=== PATIENT | female | born 1945 | race Caucasian/White ===

== ENCOUNTER 2019-07-02 08:54 | Day surgery (SDC) | payer MEDICARE, BC ==
[2019-06-30 12:16] LABS: BASOPHILS # (AUTO) 0.1 X10'3 (0-0.2); BASOPHILS % (AUTO) 1.3 % (0-1); EOSINOPHILS # (AUTO) 0.3 X10'3 (0-0.9); EOSINOPHILS % (AUTO) 3.8 % (0-6); HEMATOCRIT 38.4 % (35.0-45.0); HEMOGLOBIN 12.8 g/dl (12.0-16.0); LYMPHOCYTES # (AUTO) 1.4 X10'3 (1.1-4.8); LYMPHOCYTES % (AUTO) 20.1 % (21-51); MEAN CORPUSCULAR HEMOGLOBIN 28.3 PG (27.0-31.0); MEAN CORPUSCULAR HGB CONC 33.4 g/dL (33.0-36.5); MEAN CORPUSCULAR VOLUME 84.7 FL (78-98); MEAN PLATELET VOLUME 10.2 FL (7.4-10.4); MONOCYTES # (AUTO) 0.5 X10'3 (0-0.9); MONOCYTES % (AUTO) 7.4 % (2-12); NEUTROPHILS # (AUTO) 4.6 X10'3 (1.8-7.7); NEUTROPHILS % (AUTO) 67.4 % (42-75); PLATELET COUNT 242 X10'3 (140-440); RED BLOOD COUNT 4.54 X10'6 (4.20-5.60); RED CELL DISTRIBUTION WIDTH 13.8 % (11.5-14.5); WHITE BLOOD COUNT 6.9 X10'3 (4.5-11.0)
[2019-06-30 12:18] LABS: ALANINE AMINOTRANSFERASE 23 U/L (12-78); ALBUMIN 3.8 G/DL (3.4-5.0); ALBUMIN/GLOBULIN RATIO 1.1 (1.1-1.5); ALKALINE PHOSPHATASE 116 IU/L (46-116); ANION GAP 6 (8-16); ASPARTATE AMINO TRANSFERASE 22 U/L (10-37); BILIRUBIN,TOTAL 0.8 MG/DL (0.1-1.0); BLOOD UREA NITROGEN 18 MG/DL (7-18); BUN/CREATININE RATIO 21.2 (6.6-38.0); CALCIUM 9.8 MG/DL (8.5-10.1); CHLORIDE 103 MMOL/L (99-107); CREATININE 0.85 MG/DL (0.40-0.90); GLUCOSE 95 MG/DL (70-104); POTASSIUM 3.6 MMOL/L (3.5-5.1); SODIUM 140 MMOL/L (135-145); TOTAL CARBON DIOXIDE 30.6 MMOL/L (24-32); TOTAL PROTEIN 7.3 G/DL (6.4-8.2); eGFR 66 ML/MIN
[2019-06-30 12:23] LABS: PARTIAL THROMBOPLASTIN TIME 26 SECONDS (22-32)
[~2019-07-02] VITALS: Ht 162.6 cm; Wt 74.2 kg
[2019-07-02] VITALS (12 sets, daily range): BP systolic 103–139; BP diastolic 55–97
--- NOTE | 2019-07-02 09:00 | NUR ---
Pt ambulated independently to unit. Pt oriented to room, including call light use.
[2019-07-02] MEDS ORDERED: nitroGLYCERIN 0.4mg SUBLingual tab SL PRN (09:20)
[2019-07-02] MEDS ORDERED: LORazepam 0.5 MG tablet PO PRN (09:25)
[2019-07-02] MEDS ORDERED: normal saline 1,000 ML IV SCH (09:25)
[2019-07-02] MEDS ORDERED: diphenhydrAMINE 25mg capsule PO PRN (09:25)
[2019-07-02] MEDS ORDERED: MULT-1085 PO (09:47)
[2019-07-02] MEDS ORDERED: DESV25TA2 PO (09:47)
[2019-07-02] MEDS ORDERED: PROP10TA10 PO (09:47)
[2019-07-02] MEDS ORDERED: ASPI-611 PO (09:47)
[2019-07-02] MEDS ORDERED: LUTE1CAP5 PO (09:47)
[2019-07-02] MEDS ORDERED: LOSA1TAB39 PO (09:47)
[2019-07-02] MEDS ORDERED: NITR0.4T48 SL (09:47)
[2019-07-02] MEDS ORDERED: fentaNYL/PF 50MCG/1 ML 2ML syringe ONE (10:23)
[2019-07-02] MEDS ORDERED: iohexol 350MG/ML 100ml bottle IV ONE (10:24)
[2019-07-02] MEDS ORDERED: iohexol 350 MG/ML 50ML vial IV ONE (10:24)
[2019-07-02] MEDS ORDERED: midazolam 2 mg/2 ml injection ONE (10:24)
[2019-07-02] MEDS ORDERED: LIDOcaine 1% (10mg/ml)w/preservative injection 20ml MDV ONE (10:24)
--- NOTE | 2019-07-02 10:45 | NUR ---
Pt transported via gurney to soap slabber, pt in no acute distress.
--- NOTE | 2019-07-02 12:15 | NUR ---
Pt returned to room via gurney from rn lab. Groin site stable without bleeding or hematoma, pt awake & oriented to baseline, VSS. Will continue to closely monitor.
== END 2019-07-02 18:00 | disposition home or self-care (01) ==
LOC: SSTAY O 08:54
PROVIDERS: ATTEND Internal Medicine Cardiovascular Disease
DX: R94.39 Abnormal result of other cardiovascular function study (principal); I25.118 Atherosclerotic heart disease of native coronary artery with other forms of angina pectoris; I10 Essential (primary) hypertension; E78.5 Hyperlipidemia, unspecified; Z87.891 Personal history of nicotine dependence; Z79.899 Other long term (current) drug therapy; Z79.82 Long term (current) use of aspirin; Z79.01 Long term (current) use of anticoagulants; Z88.2 Allergy status to sulfonamides
CPT/HCPCS: 36415; 71046; 80053; 85025; 85610; 85730; 93005; 93458; 99152; 99153; C1769; J1644; J2001; J2250; J3010; J7030; Q9967; A4620; A6258; C1760

== ENCOUNTER 2019-07-23 09:35 | Day surgery (SDC) | payer MEDICARE, BC ==
[2019-07-23] VITALS (12 sets, daily range): BP systolic 116–151; BP diastolic 51–70
[~2019-07-23] VITALS: Ht 157.5 cm; Wt 72.4 kg
[~2019-07-23 09:35] MED LIST: ASPI-611 PO; DESV25TA2 PO; LOSA1TAB39 PO; LUTE1CAP5 PO; MULT-1085 PO; NITR0.4T48 SL; PROP10TA10 PO
[2019-07-23] MEDS ORDERED: ATOR20TA66 (09:58)
[2019-07-23] MEDS ORDERED: ATOR20TA66 PO ×2 (09:59→11:09)
[2019-07-23] MEDS ORDERED: nitroGLYCERIN 0.4mg SUBLingual tab SL PRN (10:00)
[2019-07-23] MEDS ORDERED: clopidogrel 300mg tablet PO ONE (10:05)
[2019-07-23] MEDS ORDERED: normal saline 1,000 ML IV SCH (10:05)
[2019-07-23] MEDS ORDERED: LORazepam 0.5 MG tablet PO PRN (10:05)
[2019-07-23] MEDS ORDERED: diphenhydrAMINE 25mg capsule PO PRN (10:05)
[2019-07-23 10:56] LABS: WHITE BLOOD COUNT 6.3 X10'3 (4.5-11.0)
[2019-07-23 10:57] LABS: BASOPHILS # (AUTO) 0.1 X10'3 (0-0.2); BASOPHILS % (AUTO) 1.5 % (0-1); EOSINOPHILS # (AUTO) 0.3 X10'3 (0-0.9); EOSINOPHILS % (AUTO) 4.1 % (0-6); HEMATOCRIT 41.2 % (35.0-45.0); HEMOGLOBIN 13.6 g/dl (12.0-16.0); LYMPHOCYTES # (AUTO) 1.6 X10'3 (1.1-4.8); LYMPHOCYTES % (AUTO) 24.5 % (21-51); MEAN CORPUSCULAR HEMOGLOBIN 28.5 PG (27.0-31.0); MEAN CORPUSCULAR VOLUME 86.3 FL (78-98); MEAN PLATELET VOLUME 10.2 FL (7.4-10.4); MONOCYTES # (AUTO) 0.4 X10'3 (0-0.9); MONOCYTES % (AUTO) 6.8 % (2-12); NEUTROPHILS % (AUTO) 63.1 % (42-75); PLATELET COUNT 246 X10'3 (140-440); RED BLOOD COUNT 4.78 X10'6 (4.20-5.60); RED CELL DISTRIBUTION WIDTH 13.8 % (11.5-14.5)
[2019-07-23 11:02] LABS: ALBUMIN 4.6 G/DL (3.4-5.0); ANION GAP 11 (8-16); BLOOD UREA NITROGEN 21 MG/DL (7-18); BUN/CREATININE RATIO 23.9 (6.6-38.0); CALCIUM 10.3 MG/DL (8.5-10.1); CHLORIDE 102 MMOL/L (99-107); CREATININE 0.88 MG/DL (0.40-0.90); GLUCOSE 97 MG/DL (70-104); POTASSIUM 3.5 MMOL/L (3.5-5.1); SODIUM 141 MMOL/L (135-145); TOTAL CARBON DIOXIDE 28.2 MMOL/L (24-32); eGFR 63 ML/MIN
[2019-07-23 11:06] LABS: PARTIAL THROMBOPLASTIN TIME 25 SECONDS (22-32)
[2019-07-23] MEDS ORDERED: midazolam 2 mg/2 ml injection ONE (12:26)
[2019-07-23] MEDS ORDERED: heparin 1,000unit/ml 10ml vial 10 ML ONE (12:27)
[2019-07-23] MEDS ORDERED: LIDOcaine 1% (10mg/ml)w/preservative injection 20ml MDV ONE (12:27)
[2019-07-23] MEDS ORDERED: iohexol 350 MG/1 ML 200ml bottle ONE (12:27)
[2019-07-23] MEDS ORDERED: tirofiban 5mg in NS 100mL 100 ML IV ONE (12:27)
[2019-07-23] MEDS ORDERED: fentaNYL/PF 50MCG/1 ML 2ML syringe ONE (12:27)
== END 2019-07-23 19:10 | disposition home or self-care (01) ==
LOC: U 09:35 → MED 3N 09:35 → U 19:10
PROVIDERS: ATTEND Internal Medicine Cardiovascular Disease
DX: I25.119 Atherosclerotic heart disease of native coronary artery with unspecified angina pectoris (principal); F32.9 Major depressive disorder, single episode, unspecified; F41.1 Generalized anxiety disorder; M47.892 Other spondylosis, cervical region; M47.894 Other spondylosis, thoracic region; M47.896 Other spondylosis, lumbar region; Z79.899 Other long term (current) drug therapy; Z79.01 Long term (current) use of anticoagulants; Z79.82 Long term (current) use of aspirin
CPT/HCPCS: 36415; 71046; 80048; 85025; 85610; 85730; C1769; C1874; C9600; J1644; J2001; J2250; J3010; J3246; Q0163; Q9967; 93005; 99152; A4620; A6258; C1751; C1760